=== PATIENT | female | born 1985 | race Caucasian/White ===

== ENCOUNTER 2023-05-18 09:31 | Emergency (ER) | payer OTHER, SELFPAY ==
[2023-05-18] VITALS (26 sets, daily range): BP systolic 117–139; BP diastolic 70–88; PULSE 59–82; RESP 16; TEMP 36.4; O2SAT 91–100; BMI 35.9
--- NOTE | 2023-05-18 09:43 | CT_ITS ---
Final Report Patient: JENNIFER HAY Facility:?[facility] Patient ID:?[id number] Site Patient ID:?[id number]. Site :?1985 Study:?CT Facial WITHOUT-05/18/2023 10:34:17 AM Ordering Physician:?DR. HURTADO Final Report: Indication: Syncope, fell on face Technique: CT facial bones without contrast. Multiplanar reformats are included. Please note that all CT scans at this facility use dose modulation, iterative reconstruction, and/or weight-based dosing when appropriate to reduce radiation dose to as low as reasonably achievable. Comparison: Same day head and cervical spine CT Findings: Bilateral depressed and comminuted nasal bone fractures. Fractures are depressed and deviated towards the right. The maxillary spines and frontal processes are intact. No nasal septal fracture or hematoma. There is some subcutaneous edema in the soft tissues of the forehead without an embedded foreign body. Normal orbits and globes. Normal intraorbital contents. Minimal mucosal thickening in the maxillary sinuses. The included intracranial contents are normal. Impression: Bilateral depressed and comminuted nasal bone fracture with deviation towards the right. Please note that all CT scans at this facility use dose modulation, iterative reconstruction, and/or weight-based dosing when appropriate to reduce radiation dose to as low as reasonably achievable. Dictated by Pamela Lombardo MD @ 05/18/2023 10:43:16 AM (Electronic Signature)
--- NOTE | 2023-05-18 09:44 | CT_ITS ---
Final Report Patient: JENNIFER HAY Facility:?[facility] Patient ID:?[id number] Site Patient ID:?[id number]. Site :?1985 Study:?CT Head WITHOUT-05/18/2023 10:33:09 AM Ordering Physician:?DR. HURTADO Final Report: INDICATION: Syncope, fell on face COMPARISON: None. TECHNIQUE: CT of the head without contrast. Multiplanar reformats are included. FINDINGS: No intracranial hemorrhage. No acute or subacute cortically based infarct. Normal appearance of the white matter. Normal ventricles. No skull fractures. No worrisome focal bone lesion. Bilateral nasal bone fractures deviated towards the right. Subcutaneous emphysema in the forehead with some soft tissue swelling. IMPRESSION: Bilateral nasal bone fractures with significant deviation to the right. Normal intracranial contents. Please note that all CT scans at this facility use dose modulation, iterative reconstruction, and/or weight-based dosing when appropriate to reduce radiation dose to as low as reasonably achievable. Dictated by Pamela Lombardo MD @ 05/18/2023 10:39:09 AM (Electronic Signature)
--- NOTE | 2023-05-18 09:44 | CT_ITS ---
Final Report Patient: JENNIFER HAY Facility:?[facility] Patient ID:?[id number] Site Patient ID:?[id number]. Site :?1985 Study:?CT Spine Cervical -05/18/2023 10:32:00 AM Ordering Physician:?DR. HURTADO Final Report: INDICATION: Syncope, fell on face COMPARISON: Same-day head CT TECHNIQUE: CT of the cervical spine without contrast. Multiplanar reformats are included. FINDINGS: Incidentally noted incompletely fused posterior arch of C1. Otherwise there is normal cervical vertebral body formation and/or segmentation No acute fracture. Normal alignment. Mild C5-6 disc space narrowing with disc bulge posteriorly and small endplate osteophytes. No facet arthritis. No neural foraminal narrowing. No central canal stenosis. Normal included soft tissues. IMPRESSION: No acute or traumatic finding in the cervical spine. 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 Please note that all CT scans at this facility use dose modulation, iterative reconstruction, and/or weight-based dosing when appropriate to reduce radiation dose to as low as reasonably achievable. Dictated by Pamela Lombardo MD @ 05/18/2023 10:41:18 AM (Electronic Signature)
--- NOTE | 2023-05-18 09:46 | ED.GENADULT ---
HPI - General Adult General Date Seen: 05/18/23 Chief complaint: Fall/Minor Trauma Stated complaint: passed out,nosebleed Time Seen by Provider: 05/18/23 09:43 History of Present Illness HPI narrative: 37-year-old female brought to the ER today by EMS from a dermatology clinic. She has a history of ADHD and anxiety. She was recently started on a new medicine for ADHD and is on BuSpar for anxiety. Sounds like she has not been taking her new ADHD medication for the past couple of weeks. She has family in [place] and has a home in [facility]. However she mostly lives and works on a [employer] in [place]. She comes home for 30 days stretches from time to time. She had a lesion on her left ear. Since she has a sister who lives in [place], she made an appointment to see a business analyst intern in [place] with the plan to have lesion on her left ear excised and then recover at her sister's house. She was at the business analyst intern's office this morning in [place]. They apparently marked a large area on her left ear that they were going to take off. As the business analyst intern was getting ready to anesthetize her ear she had a syncopal event. She says she had to has had anxiety attacks in the past triggered by injections and blood. She recalls seeing them getting ready to do an injection in her near and then blacking out. It sounds like she fell forward and hit her face against a cabinet. She woke up on the floor. She does not recall any chest pain or palpitations prior to fainting. No other history of fainting spells. No history of cardiac disease or arrhythmia. After striking her head she did suffer a vertical laceration to her forehead. This was closed with layered sutures by her business analyst intern before EMS arrived. She also suffered a injury to her nose and has a small laceration on the bridge of her nose with swelling and bruising. She has had some epistaxis that is now controlled. She also suffered a laceration to her upper lip just below her nose. She had a couple of sutures placed into the Lat laceration. She is having pain affecting her upper central incisors. Small amount of blood inside her mouth. No tongue laceration. She also has neck pain. She was placed into a cervical collar by EMS She can not remember for sure when her last tetanus shot was. She can not remember the names of her medications. She says she is on ?the new one? for her ADHD . Related Data Home Medications Medication Instructions Recorded Confirmed buspirone DAILY 05/18/23 venlafaxine DAILY 05/18/23 Allergies Allergy/AdvReac Type Severity Reaction Status Date / Time amoxicillin Allergy Unknown Verified 05/18/23 09:55 Exam Narrative: Exam Narrative: Constitutional: Arrives via EMS. Appears well-developed and well-nourished. Alert. She is pleasant and at time conversant but also somewhat confused and a poor historian. Non toxic. HENT: Head: She has a sutured vertical laceration in her forehead. Total length about 3-4 cm. It has already been sutures and the wound edges are very nicely apposed. No active bleeding. She has swelling and bruising of the bridge of her nose with a small 5-6 mm horizontal laceration over the bridge of her nose. Patient says that she already had ?2 deep sutures? placed into the nasal laceration. The wound edges are nicely apposed. Minimal active oozing from the wound edges. Good hemostasis after Dermabond. No active epistaxis. There does appear to be deviation of her nasal septum. No septal hematoma. She has a partially sutured laceration affecting the skin of her upper lip. There is an irregularly curvilinear laceration affecting the upper lip and it does not cross the vermilion border. It is closer to her nose then to the lip border. It is probably 2-2.5 cm in total length. The lateral half of the laceration is already well apposed. The medial 1.5 cm is still gaping a couple of mm. Patient says that her business analyst intern already put deep stitches in her lip laceration, which likely explains why the lateral half is nicely closed. We did retract her upper lip. I do see evidence that this is a through and through laceration. Fortunately the mucosal laceration is very small, only about 2 or 3 mm in total length and does not require sutures. She also has blood around the gums of her upper central maxilla. No definite he subluxation of her incisors. No evidence for dental fracture. She has tenderness of her maxillaries central left and right incisors. Lateral incisors and canines are nontender. Lower teeth are uninjured. Normal TMJ. Tongue normal Exam head try Mouth/Throat: Oral mucosa is clear and moist. no trismus. Visual Pharynx normal. Tonsils symmetric. No tonsillar enlargement, erythema, or exudate. Eyes: Conjunctivae normal. EOM normal. Pupils equal, round, and reactive to light. No scleral icterus. Neck: In EMS C-collar. Neck supple. No tracheal deviation present. Cardiovascular: Normal rate, regular rhythm. No gallop. No friction rub. No murmur heard. Symmetric radial artery pulses Pulmonary/Chest: Effort normal. No stridor. No respiratory distress. No wheezes. No rales. No rhonchi . No tenderness. Abdominal: Soft. Bowel sounds normal. No distension. No mass. No tenderness. No rebound. No guarding. Musculoskeletal: RUE: Normal range of motion. No tenderness. No deformity LUE: Normal range of motion. No tenderness. No deformity RLE: Normal range of motion. No edema. No tenderness. No deformity LLE: Normal range of motion. No edema. No tenderness. No deformity Neurological: Alert and oriented to person, place, and time, but a poor historian (unclear if history limited because of brain injury or possibly anxiety). Attention normal. Alert and oriented x3. GCS 15. Speech fluent. Cranial Nerves intact II-XII except I did not formally test gag or visual acuity. EOMI. Palate elevates symmetrically and tongue protrudes in the midline. Strength: 5/5 trapezius on the right and left 5/5 deltoid on the right and left 5/5 biceps on the right and left 5/5 triceps on the right and left 5/5 hydroelectric station operator on the right and left 5/5 thumb opposition on the right and left 5/5 finger abduction on the right and left 5/5 hip flexors (L3) on the right and left 5/5 quadriceps (L4) on the right and left 5/5 tibialis anterior on the right and left 5/5 EHL (L5) on the right and left 5/5 gastrocnemius (S1) on the right and left 5/5 hamstring on the right and left Sensation intact to light touch in both upper extremities (C4-T1) Sensation intact to light touch in Both lower extremities (L4-S1). Finger to nose and coordination normal. Gait not assessed due to C-spine precaution Skin: Skin is warm and dry. No rash noted. No pallor. Normal capillary refill. Psychiatric: Normal mood. Mildly anxious Const: Vital Signs, click to edit/add: Vital Signs - 24 hr 05/18/23 09:42 05/18/23 10:18 05/18/23 10:30 Temperature 97.6 F Pulse Rate 65 Pulse Rate [Left P ulse Oximeter] 62 Respiratory Rate 16 Blood Pressure Blood Pressure [Le ft Upper Arm] 139/88 Pulse Oximetry 98 91 96 Oxygen Delivery Me thod Room Air 05/18/23 10:34 05/18/23 10:34 05/18/23 10:45 Temperature Pulse Rate 78 78 71 Pulse Rate [Left P ulse Oximeter] Respiratory Rate Blood Pressure 133/87 133/87 Blood Pressure [Le ft Upper Arm] Pulse Oximetry 93 93 98 Oxygen Delivery Me thod 05/18/23 11:00 05/18/23 11:01 05/18/23 11:02 Temperature Pulse Rate 76 75 71 Pulse Rate [Left P ulse Oximeter] Respiratory Rate Blood Pressure 131/78 Blood Pressure [Le ft Upper Arm] Pulse Oximetry 97 96 97 Oxygen Delivery Me thod 05/18/23 11:15 05/18/23 11:30 05/18/23 11:31 Temperature Pulse Rate 74 82 73 Pulse Rate [Left P ulse Oximeter] Respiratory Rate Blood Pressure 133/84 Blood Pressure [Le ft Upper Arm] Pulse Oximetry 96 95 95 Oxygen Delivery Me thod 05/18/23 11:45 05/18/23 12:00 05/18/23 12:01 Temperature Pulse Rate 73 72 65 Pulse Rate [Left P ulse Oximeter] Respiratory Rate Blood Pressure 117/85 Blood Pressure [Le ft Upper Arm] Pulse Oximetry 92 95 95 Oxygen Delivery Me thod 05/18/23 12:01 05/18/23 12:02 05/18/23 12:15 Temperature Pulse Rate 65 73 62 Pulse Rate [Left P ulse Oximeter] Respiratory Rate Blood Pressure 117/85 Blood Pressure [Le ft Upper Arm] Pulse Oximetry 95 93 94 Oxygen Delivery Me thod 05/18/23 12:30 05/18/23 12:31 05/18/23 12:32 Temperature Pulse Rate 76 59 L 73 Pulse Rate [Left P ulse Oximeter] Respiratory Rate Blood Pressure 118/70 Blood Pressure [Le ft Upper Arm] Pulse Oximetry 96 94 94 Oxygen Delivery Me thod 05/18/23 12:45 05/18/23 13:00 05/18/23 13:01 Temperature Pulse Rate 75 62 67 Pulse Rate [Left P ulse Oximeter] Respiratory Rate Blood Pressure 122/77 Blood Pressure [Le ft Upper Arm] Pulse Oximetry 100 94 95 Oxygen Delivery Me thod 05/18/23 13:15 05/18/23 13:30 05/18/23 13:31 Temperature Pulse Rate 62 71 78 Pulse Rate [Left P ulse Oximeter] Respiratory Rate Blood Pressure 127/71 Blood Pressure [Le ft Upper Arm] Pulse Oximetry 96 99 95 Oxygen Delivery Me thod 05/18/23 13:45 Temperature Pulse Rate 70 Pulse Rate [Left P ulse Oximeter] Respiratory Rate Blood Pressure Blood Pressure [Le ft Upper Arm] Pulse Oximetry 98 Oxygen Delivery Me thod Course Course ED Course: Recheck-back from CT imaging. Now much calmer and more conversant. Memory better. Suspect her initial presentation was likely exacerbated by anxiety. Reevaluation(s) Reevaluation #1: Recheck-performing suture repair mother arrives. Discussed suture repair, care of multiple wounds, and plan for follow-up with the patient and with her mother. Vital Signs Vital signs: Initial Vital Signs Temperature 97.6 F 05/18/23 09:42 Temperature Source Temporal Artery Scan 05/18/23 09:42 Pulse Rate 62 05/18/23 09:42 Respiratory Rate 16 05/18/23 09:42 Blood Pressure 139/88 05/18/23 09:42 Blood Pressure Mean 105 05/18/23 09:42 Blood Pressure Position Sitting 05/18/23 09:42 Pulse Oximetry 98 05/18/23 09:42 Oxygen Delivery Method Room Air 05/18/23 09:42 Vital Signs Temperature 97.6 F 05/18/23 09:42 Pulse Rate 62 05/18/23 09:42 Respiratory Rate 16 05/18/23 09:42 Blood Pressure 139/88 05/18/23 09:42 Pulse Oximetry 98 05/18/23 09:42 Oxygen Delivery Method Room Air 05/18/23 09:42 Temperature 97.6 F 05/18/23 09:42 Pulse Rate 70 05/18/23 13:45 Respiratory Rate 16 05/18/23 09:42 Blood Pressure 127/71 05/18/23 13:31 Pulse Oximetry 98 05/18/23 13:45 Oxygen Delivery Method Room Air 05/18/23 09:42 Medications Administered Medications: Generic Name Dose Route Start Last Admin Trade Name Freq PRN Reason Stop Dose Admin Hydromorphone HCl 0.5 mg 05/18/23 09:43 05/18/23 13:42 Hydromorphone 0.5 Mg/0.5 Ml Inj IVP 0.5 mg Q1H PRN Administration Pain Discontinued Medications Generic Name Dose Route Start Last Admin Trade Name Freq PRN Reason Stop Dose Admin Cephalexin HCl 500 mg 05/18/23 13:16 05/18/23 14:14 Cephalexin 500 Mg Capsule PO 05/18/23 13:17 500 mg ONCE ONE Administration Sodium Chloride 1,000 mls @ 1,000 mls/hr 05/18/23 09:46 05/18/23 11:06 0.9 % Sodium Chloride 1000 Ml IV 05/18/23 10:45 Infused .Q1H JOSE Infusion Lidocaine/Epinephrine 20 ml 05/18/23 13:16 05/18/23 14:14 Lidocaine 1%-Epi 1:100,000 20 Ml INFILTRATI 05/18/23 13:17 20 ml ONCE ONE Administration Ondansetron HCl 4 mg 05/18/23 09:43 05/18/23 10:25 Ondansetron 2 Mg/Ml Inj IVP 05/18/23 09:44 4 mg ONCE ONE Administration Medical Decision Making MDM Narrative Medical decision making narrative: 37-year-old female with a complex presentation to the ER. She was brought to the ER today by EMS from her dermatology clinic in [place]. She had a syncopal event while preparing for a procedure to remove a skin lesion on her left ear. This patient presents for evaluation of a syncopal event. A broad differential was considered. History provided suggests a benign cause of syncope. No murmurs . Initial ECG shows normal sinus rhythm and no dysrhythmogenic abnormality such as WPW, prolonged QT, Brugada syndrome, and no ischemia. No symptoms/findings concerning for cardiac ischemia or ACS . No headache or other neurologic symptoms to suggest subarachnoid , stroke . No reported seizure-like activity or postictal phase. A broad differential diagnosis was considered including SVT, Atrial fibrillation, ventricular arrhythmia, thyroid disease, acute electrolyte abnormality, drugs/medications, medication side effect, anemia, heart disease, PE, among others. The workup and exam here in ED shows low risk for dangerous cause of the patient's syncope, and no risks factors to warrant admission., we strongly suspect anxiety driven vagovagal syncope. Questions answered and return precautions given She did hit her head when she fainted and injure her neck. Fortunately head CT and C-spine CT show no sign of acute intracranial injury or cervical spine injury. Suspect she probably did suffer a concussion when she fell. Reviewed head injury precautions. Patient has a reliable adult to take her home. She does have multiple facial wounds. She did break her nose as evidence by clinical exam and CT maxillofacial. Discussed with our ENT surgeon. He will see the patient in clinic tomorrow for recheck. Given that these are displaced fractures this likely will require ENT intervention. Will start on prophylactic antibiotics to prevent nasal bone infection. First dose of cephalexin given here in the ER. Discussed nasal fracture care including ice, rest, avoiding blowing nose. She already had partial repair of her nasal laceration. I did apply Dermabond to help achieve hemostasis She also has a forehead laceration that was completely repaired by her business analyst intern prior to arrival She also has a complex curvilinear laceration affecting her upper lip. This was partially repaired by her business analyst intern prior to arrival. I did place for additional skin sutures on the outer surface to help bring the wound edges tightly together for better cosmesis. On my exam this is a through and through laceration. Fortunately the mucosal surface is small and does not require intraoral stitches. Discussed infection precaution, clear liquid and soft diet for the next several days per Recommend suture removal within 5-7 days. Patient is currently traveling here to [place] and lives long-term in [place]. She says she will likely follow up with a doctor's office [facility], closer to her home. I advised her that even if she has to return to the ER she should have her stitches out in 5-7 days. She will follow-up tomorrow 05/18 with the ENT Clinic in [place]. She has an appointment for 1:00 p.m. Lab Data Labs: Lab Results 05/18/23 Range/Units 10:27 WBC 12.09 H (4.50-11.00) K/uL RBC 4.22 (4.00-5.20) m/uL Hgb 12.9 (12.0-16.0) gm/dL Hct 39.6 (33.0-51.0) % MCV 94 (80-100) fL MCH 31 (26-34) pg MCHC 33 (32-36) gm/dL RDW Coeff of Rosamaria 12.4 (11.5-15.5) % Plt Count 254 (140-440) K/uL Neut % (Auto) 84.1 H (42.0-72.0) % Lymph % (Auto) 10.7 L (20-44) % [place] % (Auto) 4.9 (0.0-11.0) % Eos % (Auto) 0.0 (0.0-7.0) % Baso % (Auto) 0.1 (0.0-3.0) % Neut # (Auto) 10.20 H (1.7-7.0) K/uL Lymph # (Auto) 1.30 (0.90-2.90) K/uL [place] # (Auto) 0.60 (0.00-0.90) K/UL Eos # (Auto) 0.00 (0.00-0.50) K/uL Baso # (Auto) 0.00 (0.00-0.30) K/uL Abs Immat Gran (auto) 0.00 (0.00-0.30) K/uL Imm/Tot Granulo (auto) 0.2 % Sodium 137 (135-149) mmol/L Potassium 3.8 (3.6-5.1) mmol/L Chloride 103 (96-114) mmol/L Carbon Dioxide 23 (20-32) mmol/L Anion Gap 11 (7-15) mEq/L BUN 17 (5-24) mg/dL Creatinine 0.7 (0.5-1.5) mg/dL Estimated Creat Clear 93.17 Estimated GFR 113 ml/min Glucose 113 (60-115) mg/dL Calcium 9.1 (8.4-10.6) mg/dL HCG, Qual Negative (Negative) Imaging Data CT facial bones: Attestation: I have reviewed the pertinent imaging results. Radiologist's impression: Impression: Bilateral depressed and comminuted nasal bone fracture with deviation towards the right. CT scan - head: Attestation: I have reviewed the pertinent imaging results. Radiologist's impression: IMPRESSION: Bilateral nasal bone fractures with significant deviation to the right. Normal intracranial contents. CT C spine: Attestation: I have reviewed the pertinent imaging results. Radiologist's impression: IMPRESSION: No acute or traumatic finding in the cervical spine. 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 ECG Data Attestation: I personally reviewed and interpreted this ECG as follows: Interpretation: Normal sinus rhythm rate 65 MS 166. No delta wave QRS axis normal axis. No pathologic Q-waves. No Brugada syndrome ST segment/T wave: No ST segment elevation depression QTc: 430 Discharge Plan Discharge Clinical Impression: Fracture of nasal bone, Concussion, Syncope, Forehead laceration, Laceration of nose, Laceration of upper lip, complicated Patient Disposition: Home, Self-Care Condition: Stable Instructions: Nasal Fracture (ED), Laceration (DC), Concussion (ED), Facial Laceration (ED) Additional Instructions: For your facial lacerations (on your forehead and on your upper lip): you should see your doctor or follow up with the urgent care in 5-7 days to have the external sutures removed. The deep buried sutures will dissolve on their own. Please keep the wounds covered with antibiotic ointment and a dressing if possible. Clean them very gently once per day to remove scabs or debris. If you have any concern for infection such as redness, swelling, or pus, return to the ER or see your doctor right away. For your broken nose: Avoid blowing your nose. Use ibuprofen or Tylenol if needed for pain. Use an ice pack for 20 minutes every 3-4 hours to help reduce swelling and bruising. You have skin glue covering the laceration on your nose. Please keep this area clean and dry. We will start you on antibiotics (cephalexin) to try to prevent infection in your broken nose. If you develop signs of redness, swelling, or pus draining from your cut, please see your doctor or come back to the ER right away Please see Dr. Taryn Jean, ENT at the [facility] [address] [place] [address] You have an appointment to see Dr. Forbes tomorrow 05/18 at 1:00 p.m.. For your concussion: Try to get plenty of sleep. Rest. Avoid dangerous activities or repeat head injuries for the next 14 days. If you have worsening headache, confusion, vomiting more than once, or any concerns, return to the ER immediately Prescriptions: No Action buspirone DAILY venlafaxine DAILY Follow Up/Referrals: Provider,Not a Local [Primary Care Provider] - Stand Alone Forms: [facility] Info Instructions Procedures Laceration Upper lip: Pre procedure diagnosis: Through and through upper lip laceration Verification/time out: correct patient, correct site and correct procedure Site: lip Size (cm): 2.5 Local Anesthetic: lidocaine 1% and with epi Amount of anesthesia used (mL): 4 Pre-repair: wound explored Skin layer closed with: nylon Size (cm): 6-0 Number of sutures: 4 Technique: other (This laceration has already been partially repaired by her business analyst intern. And there appears to be deep sutures in place which I did not remove. The lateral half of the wound is already nicely apposed. The skin edges on the medial half laceration, the medial about 1-1.5 cm, and required sutures) Nasal: Pre procedure diagnosis: Nasal laceration and nasal fracture Verification/time out: correct patient and correct site Size (cm): 0.5 Technique: other (Dermabond placed to the skin surface. This helped control very slow venous oozing. The patient says that the deeper nasal laceration was already closed with buried stitches by her business analyst intern. I did not remove these berries sutures.)
[2023-05-18] MEDS: 0.9 % SODIUM CHLORIDE 1000 ml 1,000 ML IV (10:25)
[2023-05-18] MEDS: ONDANSETRON 2 MG/ML inj 4 MG IVP (10:25)
[2023-05-18] MEDS: HYDROmorphone 0.5 mg/0.5 ml inj IVP ×2 (10:27→13:42)
[2023-05-18 10:53] LABS: Basophils Percent Auto 0.1 % (0.0-3.0); Hematocrit 39.6 % (33.0-51.0); Hemoglobin* 12.9 gm/dL (12.0-16.0); Immature Granulocytes Pct Auto 0.2 %; Lymphocytes Percent Auto 10.7 % (20-44); Mean Corpuscular HGB Conc 33 gm/dL (32-36); Mean Corpuscular Hemoglobin 31 pg (26-34); Mean Corpuscular Volume 94 fL (80-100); Monocytes Percent Auto 4.9 % (0.0-11.0); Neutrophils Percent Auto 84.1 % (42.0-72.0); Platelet Count* 254 K/uL (140-440); RDW Coefficient of Variation % 12.4 % (11.5-15.5); Red Blood Count 4.22 m/uL (4.00-5.20); White Blood Count* 12.09 K/uL (4.50-11.00)
[2023-05-18 10:57] LABS: Slide Review Reflex No
[2023-05-18 11:07] LABS: Chloride* 103 mmol/L (96-114); Sodium* 137 mmol/L (135-149)
[2023-05-18 11:08] LABS: Potassium* 3.8 mmol/L (3.6-5.1)
[2023-05-18 11:10] LABS: Creatinine* 0.7 mg/dL (0.5-1.5); Est. Creatinine Clearance* 93.17; Estimated Glomerular Filt Rate 113 ml/min
[2023-05-18 11:11] LABS: Anion Gap 11 mEq/L (7-15); Blood Urea Nitrogen* 17 mg/dL (5-24); Calcium* 9.1 mg/dL (8.4-10.6); Carbon Dioxide* 23 mmol/L (20-32); Glucose* 113 mg/dL (60-115)
[2023-05-18 11:13] LABS: HCG Qualitative Serum* Negative (Negative)
[2023-05-18] MEDS: cephALEXin 500 MG CAPSULE PO (14:14)
== END 2023-05-18 14:40 | disposition home or self-care (01) ==
PROVIDERS: Emergency Provider Emergency Medicine
DX: S02.2XXA Fracture of nasal bones, initial encounter for closed fracture (principal); S06.0X0A Concussion without loss of consciousness, initial encounter; S01.81XA Laceration without foreign body of other part of head, initial encounter; S01.21XA Laceration without foreign body of nose, initial encounter; S01.511A Laceration without foreign body of lip, initial encounter; R55 Syncope and collapse; W19.XXXA Unspecified fall, initial encounter; Y92.89 Other specified places as the place of occurrence of the external cause
CPT/HCPCS: 12013; 36415; 70450; 70486; 72125; 80048; 84703; 85025; 93005; 96374; 96375; 99284; 99285; A9270; J1170; J2405; J7030